=== PATIENT | male | born 2005 | race Caucasian/White ===

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

== ENCOUNTER 2024-04-14 17:20 | Emergency (ER) | payer OTHER ==
[2024-04-14 18:41] LABS: #Basophils 0.1 thou/uL (0.0-0.2); #Eosinphils 1.4 thou/uL (0.0-0.7); #Lymphocytes 2.5 thou/uL (1.20-3.40); #Monocytes 0.4 thou/uL (0.11-0.59); #Neutrophils 3.9 thou/uL (1.40-6.50); %Eosinophils 16.5 % (0.0-10.0); %Lymphocytes 29.8 % (28.0-48.0); %Monocytes 5.3 % (0.0-4.0); %Neutrophils 47.4 % (31.0-61.0); Hematocrit 43.5 % (42.0-52.0); Hemoglobin 13.6 g/dL (14.0-18.0); Mean Corpuscular HGB CONC 31.3 g/dL (32.0-36.0); Mean Corpuscular Hemoglobin 29.8 pg (25.0-35.0); Mean Corpuscular Volume 95.3 fl (78.0-98.0); Mean Platelet Volume 6.9 fL (7.4-10.4); Platelet Count 178 10x3/uL (130-400); RBC Distribution Width 12.4 % (11.5-14.5); Red Blood Cell (RBC) Count 4.56 mill/uL (4.00-5.20); White Blood Cell (WBC) Count 8.2 10x3/uL (4.8-10.8)
[2024-04-14] MEDS ORDERED: Vancomycin HCl 500 MG VIAL ONE (18:45)
[2024-04-14] MEDS ORDERED: Acetaminophen 325 MG TAB ONE (18:45)
[2024-04-14] MEDS ORDERED: Sodium Chloride 0.9% 1,000 ML ONE (18:46)
[2024-04-14] MEDS ORDERED: Vancomycin 1 GM VIAL ONE (18:46)
[2024-04-14] MEDS ORDERED: Sodium Chloride 0.9% 250 ML 500 ML ONE (18:46)
[2024-04-14 19:04] LABS: ALT (SGPT) 13 U/L (8-55); AST (SGOT) 13 U/L (5-34); Alkaline Phosphatase 58 U/L (50-130); Anion Gap 12 mmol/L (10-20); BUN (Urea Nitrogen) 17 mg/dL (8.9-20.6); Bilirubin, Total Less than 0.2 mg/dL (0.2-1.2); Calc. Creatinine Clearance 0 mL/min (70-130); Calcium 8.7 mg/dL (7.8-10.44); Carbon Dioxide 26 mmol/L (22-29); Chloride 104 mmol/L (98-107); Estimated GFR 131; Globulin 2.6 g/dL (2.4-3.5); Glucose 100 mg/dL (70-105); Potassium 3.8 mmol/L (3.5-5.1); Protein, Total 6.6 g/dL (6.0-8.3); Sodium 138 mmol/L (136-145)
[2024-04-14] MEDS ORDERED: Sodium Chloride 0.9% 100 ML ONE (19:34)
[2024-04-14] MEDS ORDERED: Cefepime 2 GM VIAL ONE (19:34)
== END 2024-04-14 21:34 | disposition home or self-care (01) ==
LOC: MADERS 17:20
DX: L03.116 Cellulitis of left lower limb (principal)
CPT/HCPCS: 80053; 83605; 85025; 87040; 96365; 96366; 96367; J0692; J3370; J7030; J7050

== ENCOUNTER 2025-04-18 16:43 | Emergency (ER) | payer OTHER ==
[2025-04-18] MEDS ORDERED: Boostrix 0.5 ML (Tdap) VIAL (>/=7 yrs of age) ONE (17:06)
[2025-04-18] MEDS ORDERED: Fluorescein Opthalmic Strip ONE (17:07)
== END 2025-04-18 18:22 | disposition home or self-care (01) ==
LOC: MADERS 16:43
DX: S01.112A Laceration without foreign body of left eyelid and periocular area, initial encounter (principal); F84.0 Autistic disorder; R56.9 Unspecified convulsions; Z23 Encounter for immunization; W20.8XXA Other cause of strike by thrown, projected or falling object, initial encounter
CPT/HCPCS: 12011; 70480; 90471; 90715